=== PATIENT | male | born 1985 | race African-American/Black ===

== ENCOUNTER 2019-01-30 12:11 | Observation (INO) ==
[2019-01-30] MEDS ORDERED: NITROGLYCERIN 2% OINT 1 INCH/GM PACK TOP STA (12:35)
[2019-01-30] MEDS ORDERED: ASPIRIN 325 MG TABLET PO STA (12:35)
[2019-01-30] MEDS ORDERED: MORPHINE 4 MG/1 ML VIAL IV STA (12:35)
[2019-01-30] MEDS ORDERED: ONDANSETRON 4 MG/2 ML VIAL IV STA (12:35)
[2019-01-30] MEDS ORDERED: ALUM/MAG/SIMETH/LIDO VISC 1:1 30 ML BOTTLE PO STA (12:35)
[2019-01-30 12:56] LABS: Basophils % 0.4 % (0.0-0.8); Eosinophils # 0.1 10*3/uL (0.0-0.87); Eosinophils % 1.6 % (0.00-10.9); Hematocrit 43.7 VOL% (42.0-52.0); Immature Granulocytes % 0.2 %; Immature Granulocytes Absolute 0.01 #; Lymphocytes % 35.4 % (21.2-54.2); Mean Corpuscular Hemoglobin 30 PG (27-34); Mean Corpuscular Volume 93.2 FL (87-102); Mean Platelet Volume 9.8 FL (9.6-12.0); Monocytes # 0.7 10*3/uL (0.11-0.8); Monocytes % 11.5 % (1.7-12.7); Neutrophils # 2.9 10*3/uL (1.4-7.4); Neutrophils % 50.9 % (38.7-73.9); Platelet Count 259 T/CUMM (130-400); Red Blood Count 4.69 MC/CUMM (3.8-5.5); Red Cell Distribution Width 13.2 % (9.3-17.3); White Blood Count 5.7 T/CUMM (4-12)
[2019-01-30 13:05] LABS: PT Patient Result 10.7 SECS
[2019-01-30 13:21] LABS: Alanine Aminotransferase 20 U/L (16-61); Albumin 3.9 G/DL (3.4-5.0); Alkaline Phosphatase 83 U/L (45-117); Aspartate Amino Transferase 14 U/L (0-37); Blood Urea Nitrogen 11 MG/DL (7-18); Calcium 8.8 MG/DL (8.5-10.1); Glucose 85 MG/DL (74-106); Osmolality,Calculated 276.4 MOS/KG (273-304); Potassium 3.6 MMOL/L (3.5-5.1); Sodium 140 MMOL/L (136-145); Total Protein 8.1 G/DL (6.4-8.3); Troponin I < 0.015 NG/ML (0.00-0.045)
[2019-01-30 13:31] LABS: Apearance,Urine CLEAR (Clear); Bilirubin,Urine Negative (Negative); Blood, Urine Small mg/dL (Negative); Glucose,Urine (UA) Negative (Negative); Hyaline Casts,Urine 1 /LPF (0-3); Ketones,Urine 5 mg/dL (Negative); Mucus,Urine Many /LPF (Occasional); Nitrite,Urine Negative (Negative); Protein,Urine 30 MG/DL; RBC,Urine 5 /HPF (0-4); Squamous Epithelial Cell,Urine Occasional /HPF (0-10); Urine Color Amber (Yellow); Urine Specific Gravity 1.026 (1.001-1.035); WBC,Urine 5 /HPF (0-6)
[2019-01-30 13:46] LABS: Barbiturates Screen,Urine Negative (Negative); Benzodiazepines Screen,Urine Negative (Negative); Cannabinoid Screen,Urine Negative (Negative); Opiate Screen,Urine Positive (Negative); Phencyclidine Screen,Urine Negative (Negative)
[2019-01-30] MEDS ORDERED: hydrALAZINE 20 MG/1 ML VIAL IV STA (13:49)
[2019-01-30] MEDS ORDERED: ENOXAPARIN 40 MG/0.4 ML SYRINGE SUBCUT SCH (15:00)
[2019-01-31 03:34] LABS: Basophils % 0.6 % (0.0-0.8); Eosinophils # 0.1 10*3/uL (0.0-0.87); Eosinophils % 2.3 % (0.00-10.9); Hematocrit 42.2 VOL% (42.0-52.0); Hemoglobin 13.3 GM/DL (14.0-18.0); Immature Granulocytes % 0.4 %; Immature Granulocytes Absolute 0.02 #; Lymphocytes # 2.3 10*3/uL (1.4-4.0); Lymphocytes % 44.6 % (21.2-54.2); Mean Corpuscular HGB Conc 31.5 GM/DL (32-36); Mean Corpuscular Hemoglobin 30 PG (27-34); Mean Corpuscular Volume 94.4 FL (87-102); Mean Platelet Volume 10.1 FL (9.6-12.0); Monocytes # 0.5 10*3/uL (0.11-0.8); Monocytes % 9.7 % (1.7-12.7); Neutrophils # 2.2 10*3/uL (1.4-7.4); Neutrophils % 42.4 % (38.7-73.9); Platelet Count 254 T/CUMM (130-400); Red Blood Count 4.47 MC/CUMM (3.8-5.5); Red Cell Distribution Width 13.1 % (9.3-17.3); White Blood Count 5.3 T/CUMM (4-12)
[2019-01-31 03:55] LABS: Calcium 8.8 MG/DL (8.5-10.1); Osmolality,Calculated 278.3 MOS/KG (273-304); Potassium 3.7 MMOL/L (3.5-5.1); Risk Ratio 3.9; Thyroid Stimulating Hormone 1.01 uIU/ml (0.358-3.74); VLDL CHOLESTEROL 21.2 MG/DL
[2019-01-31] MEDS ORDERED: amLODIPine 10 MG TABLET PO SCH (09:00)
[2019-01-31] MEDS ORDERED: LISINOPRIL/HCTZ 20-12.5 MG TABLET PO SCH (09:00)
[2019-01-31] MEDS ORDERED: POTASSIUM CHLORIDE RIDER 10 MEQ in PREMIX 1 EACH IV PRN (11:31)
[2019-01-31] MEDS ORDERED: MAGNESIUM SULF RIDER 2 GM in PREMIX 1 EACH IV PRN (11:31)
[2019-01-31] MEDS ORDERED: SODIUM CHLORIDE 0.45% 1,000 ML IV SCH (12:00)
[2019-01-31] MEDS ORDERED: diphenhydrAMINE CAP 50 MG CAPSULE ONE (12:46)
[2019-01-31] MEDS ORDERED: DIAZEPAM 5 MG TABLET ONE (12:46)
[2019-01-31] MEDS ORDERED: LIDOCAINE 1% 20 ML VIAL ONE (12:57)
[2019-01-31] MEDS ORDERED: DIAZEPAM 5 MG TABLET PO ONE (13:00)
[2019-01-31] MEDS ORDERED: diphenhydrAMINE CAP 25 MG CAPSULE PO ONE (13:00)
[2019-01-31] MEDS ORDERED: NITROGLYCERIN DRIP 50 MG/250 ML BOTTLE IV ONE (13:08)
[2019-01-31] MEDS ORDERED: VERAPAMIL 5 MG/2 ML VIAL ONE (13:08)
[2019-01-31] MEDS ORDERED: MIDAZOLAM 2 MG/2 ML VIAL ONE (13:16)
[2019-01-31] MEDS ORDERED: fentaNYL 100 MCG/2 ML VIAL ONE (13:16)
[2019-01-31] MEDS ORDERED: PROMETHAZINE 25 MG/1 ML VIAL ONE (13:23)
[2019-01-31] MEDS ORDERED: ENOXAPARIN 60 MG/0.6 ML SYRINGE ONE (13:30)
[2019-01-31 17:02] VITALS: BP 127/84
== END 2019-01-31 19:05 | disposition home or self-care (01) ==
LOC: N.EDINP 12:11 → N.ED 12:11 → N.TELES 17:32
PROVIDERS: ADMIT Internal Medicine; ATTEND Internal Medicine
PROC: CLCCHCL (ICD-10-PCS; 2019-01-31 14:45)